=== PATIENT | female | born 1995 | race Caucasian/White ===

== ENCOUNTER 2023-06-11 12:31 | Emergency (ER) | payer OTHER ==
[~2023-06-11] VITALS: Ht 152.4 cm; Wt 79.4 kg
[2023-06-11 12:39] VITALS: BP 122/81; PULSE 118; RESP 20; TEMP 99; O2SAT 98
[2023-06-11] MEDS ORDERED: DEXAMETHASONE 10 MG/ML VIAL IM ONE (13:15)
[2023-06-11] MEDS ORDERED: KETOROLAC 30 MG/ML VIAL IM ONE (13:15)
[2023-06-11] MEDS ORDERED: ACET-9520 PO (13:17)
[2023-06-11] MEDS ORDERED: ROB PO (13:17)
[2023-06-11 13:41] LABS: FLU A ANTIGEN negative (NEGATIVE); FLU B ANTIGEN NEGATIVE (NEGATIVE)
[2023-06-11 13:43] VITALS: PULSE 89; RESP 20; TEMP 98; O2SAT 98
== END 2023-06-11 13:43 | disposition home or self-care (01) ==
LOC: MED 12:31
DX: J02.9 Acute pharyngitis, unspecified (principal); Z20.822 Contact with and (suspected) exposure to COVID-19; Z79.899 Other long term (current) drug therapy
CPT/HCPCS: 81025; 87426; 87804; 96372; 99284; J1100; J1885